=== PATIENT | female | born 1995 | race Caucasian/White ===

== ENCOUNTER 2018-02-14 17:23 | Emergency (ER) | payer OTHER ==
[~2018-02-14] VITALS: Ht 160 cm; Wt 98.0 kg
[2018-02-14] MEDS ORDERED: CELEXA40 MG PO (17:51)
[2018-02-14] MEDS ORDERED: BUSPIRONE HCL10 MG PO (17:51)
[2018-02-14 18:22] LABS: ABSOLUTE BASOPHILS 0.1 thou/uL (0.0-0.2); ABSOLUTE EOSINOPHILS 0.1 thou/uL (0.0-0.7); ABSOLUTE LYMPHOCYTES 2.2 thou/uL (0.8-5.3); ABSOLUTE NEUTROPHILS 9.1 thou/uL (1.6-8.1); BASOPHILS 0.7 %; EOSINOPHILS 1.1 %; HEMATOCRIT 42.8 % (37.0-47.0); HEMOGLOBIN 14.5 gm/dL (12.0-15.0); LYMPHOCYTES 17.4 %; MCHC 33.8 g/dL (28.0-37.0); MCV 85.9 fL (80.0-100.0); MONOCYTES 7.8 %; MPV 9.1 fl. (7.2-11.1); NUCLEATED RBCS 0 /100WBC; PLATELET COUNT* 281 thou/uL (150-400); RBC 4.99 mil/uL (4.20-5.00); RDW-CV 13.2 % (10.5-14.5); WBC 12.4 thou/uL (4.0-11.0)
[2018-02-14 18:25] LABS: URINE BILIRUBIN NEGATIVE (Negative); URINE BLOOD 2+ (Negative); URINE CLARITY SL CLOUDY; URINE COLOR YELLOW; URINE GLUCOSE-RANDOM NEGATIVE (Negative); URINE KETONES NEGATIVE (Negative); URINE LEUKOCYTES-REFLEX 2+ (Negative); URINE NITRITE-REFLEX NEGATIVE (Negative); URINE PROTEIN 2+ (Negative); URINE UROBILINOGEN 0.2 E.U./dl (0.2-1.0)
[2018-02-14 18:29] LABS: CALCIUM 9.1 mg/dL (8.5-10.1); CREATININE 0.8 mg/dL (0.6-1.3); POTASSIUM 3.9 mmol/L (3.5-5.1)
[2018-02-14 18:33] LABS: SQUAMOUS >10 Many /LPF (0-3)
[2018-02-14 18:34] LABS: URINE RBC 3-10 Few /HPF (0-2); URINE WBC-REFLEX >25 Many /HPF (0-5)
[2018-02-14 18:34] LABS: TOTAL BILIRUBIN 0.3 mg/dL (<0.1-1.0); TOTAL PROTEIN 7.5 g/dL (6.4-8.2)
[2018-02-14 18:35] LABS: CASTS None Seen /LPF (None Seen); WBC CLUMPS Few (None Seen)
[2018-02-14 18:36] LABS: CRYSTALS None Seen /LPF (None Seen); MUCUS 0-3 Light strn/LPF (None Seen)
[2018-02-14] MEDS ORDERED: CIPRO500 MG PO (19:45)
[2018-02-14 19:57] VITALS: BP 134/92
== END 2018-02-14 19:57 | disposition home or self-care (01) ==
LOC: M.ERS 17:23
PROVIDERS: Physician Assistant
DX: N12 Tubulo-interstitial nephritis, not specified as acute or chronic (principal); I10 Essential (primary) hypertension; F41.9 Anxiety disorder, unspecified; F32.9 Major depressive disorder, single episode, unspecified

== ENCOUNTER 2020-10-23 18:40 | Emergency (ER) | payer OTHER ==
[~2020-10-23] VITALS: Ht 160 cm; Wt 108.9 kg
[~2020-10-23 18:40] MED LIST: BUSPIRONE HCL10 MG PO; CELEXA40 MG PO; CIPRO500 MG PO
[2020-10-23] MEDS ORDERED: LITHATE5 MG PO (18:51)
[2020-10-23] MEDS ORDERED: TOPAMAX100 MG PO (18:51)
[2020-10-23] MEDS ORDERED: ABILIFY10 MG PO (18:51)
[2020-10-23 18:53] VITALS: BP 115/81
[2020-10-23] MEDS ORDERED: TOPAMAX SPRINKL15 M1 PO (18:53)
== END 2020-10-23 19:37 | disposition left against medical advice (07) ==
LOC: M.ERS 18:40
DX: Z53.21 Procedure and treatment not carried out due to patient leaving prior to being seen by health care provider (principal)

== ENCOUNTER 2021-05-09 05:48 | Emergency (ER) | payer OTHER, MEDICAID ==
[~2021-05-09] VITALS: Ht 157.5 cm; Wt 95.3 kg
[~2021-05-09 05:48] MED LIST changes: +ABILIFY10 MG PO; +LITHATE5 MG PO; +TOPAMAX SPRINKL15 M1 PO; +TOPAMAX100 MG PO
[2021-05-09] MEDS ORDERED: FLUOXETINE HCL40 MG PO (06:05)
[2021-05-09] MEDS ORDERED: ADDERALL 10 MG10 MG PO (06:05)
[2021-05-09 06:23] LABS: URINE BILIRUBIN NEGATIVE (Negative); URINE BLOOD NEGATIVE (Negative); URINE COLOR YELLOW; URINE GLUCOSE-RANDOM NEGATIVE (Negative); URINE KETONES NEGATIVE (Negative); URINE LEUKOCYTES-REFLEX TRACE (Negative); URINE NITRITE-REFLEX NEGATIVE (Negative); URINE PROTEIN NEGATIVE (Negative); URINE SPECIFIC GRAVITY >= 1.030 (1.005-1.030); URINE UROBILINOGEN 0.2 E.U./dl (0.2-1.0)
[2021-05-09 06:24] LABS: URINE CLARITY SL HAZY
[2021-05-09 06:35] LABS: ABSOLUTE BASOPHILS 0.1 thou/uL (0.0-0.2); ABSOLUTE EOSINOPHILS 0.1 thou/uL (0.0-0.7); ABSOLUTE LYMPHOCYTES 2.6 thou/uL (0.8-5.3); ABSOLUTE MONOCYTES 0.6 thou/uL (0.0-1.2); ABSOLUTE NEUTROPHILS 6.1 thou/uL (1.6-8.1); BASOPHILS 0.7 %; EOSINOPHILS 1.5 %; HEMATOCRIT 41.5 % (37.0-47.0); LYMPHOCYTES 27.3 %; MCH 29.2 pg (26.0-34.0); MCHC 33.7 g/dL (28.0-37.0); MCV 86.6 fL (80.0-100.0); MONOCYTES 6.5 %; MPV 8.7 fl. (7.2-11.1); NUCLEATED RBCS 0 /100WBC; PLATELET COUNT* 85 thou/uL (150-400); WBC 9.6 thou/uL (4.0-11.0)
[2021-05-09 07:23] LABS: AMORPHOUS PHOSPHATES Few /LPF (None Seen); BACTERIA-REFLEX 1-9 Few /HPF (None Seen); CASTS None Seen /LPF (None Seen); SQUAMOUS 4-10 Moderate /LPF (0-3); URINE RBC None Seen /HPF (0-2); URINE WBC-REFLEX 0-5 Rare /HPF (0-5)
[2021-05-09 07:47] LABS: CALCIUM 8.4 mg/dL (8.5-10.1); CREATININE 0.8 mg/dL (0.6-1.3); POTASSIUM 4.2 mmol/L (3.5-5.1)
[2021-05-09 08:08] LABS: ALBUMIN 3.6 g/dL (3.4-5.0); DIRECT BILIRUBIN 0.1 mg/dL (<0.1-0.3); TOTAL BILIRUBIN 0.2 mg/dL (<0.1-1.0); TOTAL PROTEIN 7.1 g/dL (6.4-8.2)
[2021-05-09] MEDS ORDERED: HYDROCODON-ACE1 EAC7 PO (08:17)
[2021-05-09] MEDS ORDERED: CEPHALEXIN500 MG PO (08:17)
[2021-05-09] MEDS ORDERED: ZOFRAN ODT4 MG DISSOLVE (08:17)
[2021-05-09 08:39] VITALS: BP 115/71
== END 2021-05-09 08:40 | disposition home or self-care (01) ==
LOC: M.ERS 05:48
PROVIDERS: Emergency Medicine; Emergency Medicine Emergency Medical Services
DX: R10.31 Right lower quadrant pain (principal); I10 Essential (primary) hypertension; F41.9 Anxiety disorder, unspecified; F32.9 Major depressive disorder, single episode, unspecified; Z79.899 Other long term (current) drug therapy; Z88.8 Allergy status to other drugs, medicaments and biological substances

== ENCOUNTER 2021-05-16 07:42 | Emergency (ER) | payer OTHER, MEDICAID ==
[~2021-05-16] VITALS: Ht 157.5 cm; Wt 95.3 kg
[~2021-05-16 07:42] MED LIST changes: +ADDERALL 10 MG10 MG PO; +CEPHALEXIN500 MG PO; +FLUOXETINE HCL40 MG PO; +HYDROCODON-ACE1 EAC7 PO; +ZOFRAN ODT4 MG DISSOLVE
[2021-05-16 08:55] VITALS: BP 155/99
== END 2021-05-16 08:55 | disposition home or self-care (01) ==
LOC: M.ERS 07:42
DX: Z77.028 Contact with and (suspected) exposure to other hazardous aromatic compounds (principal); I10 Essential (primary) hypertension; F41.9 Anxiety disorder, unspecified; F32.9 Major depressive disorder, single episode, unspecified; Z79.899 Other long term (current) drug therapy; Z88.8 Allergy status to other drugs, medicaments and biological substances